=== PATIENT | male | born 1980 | race Caucasian/White ===

== ENCOUNTER 2016-12-04 11:30 | Emergency (ER) | payer OTHER ==
[~2016-12-04] VITALS: Ht 182.9 cm; Wt 99.4 kg
[2016-12-04] MEDS ORDERED: SODIUM CHLORIDE FLUSH 10ML SYR IVF ONE (12:30)
[2016-12-04] MEDS ORDERED: PROCHLORPERAZINE 5 MG/ML, 2ML IVPush ONE (12:30)
[2016-12-04] MEDS ORDERED: DIPHENHYDRAMINE 50 MG/ML, 1ML IVPush ONE (12:30)
[2016-12-04] MEDS ORDERED: SODIUM CHLORIDE 0.9% 1,000ML IVBOLUS ONE (12:30)
[2016-12-04] MEDS ORDERED: PROCHLORPERAZINE 5 MG/ML, 2ML ONE (13:06)
[2016-12-04] MEDS ORDERED: DIPHENHYDRAMINE 50 MG/ML, 1ML ONE (13:07)
[2016-12-04 14:22] VITALS: BP 120/87
== END 2016-12-04 14:26 | disposition home or self-care (01) ==
LOC: ED 12:00
DX: G43.109 Migraine with aura, not intractable, without status migrainosus (principal); R11.10 Vomiting, unspecified
CPT/HCPCS: 96361; 96374; 96375; 99284; J0780; J1200; J7030

== ENCOUNTER 2017-12-05 09:42 | Emergency (ER) | payer OTHER ==
[~2017-12-05] VITALS: Ht 182.9 cm; Wt 93.8 kg
[2017-12-05 09:48] VITALS: BP 129/83
[2017-12-05] MEDS ORDERED: HYDROcodone/APAP 5/325 TABLET ONE (11:13)
[2017-12-05] MEDS ORDERED: HYDROcodone/APAP 5/325 TABLET PO ONE (11:30)
== END 2017-12-05 12:30 | disposition home or self-care (01) ==
LOC: ED 11:45
DX: S92.355A Nondisplaced fracture of fifth metatarsal bone, left foot, initial encounter for closed fracture (principal); W10.9XXA Fall (on) (from) unspecified stairs and steps, initial encounter; Y93.89 Activity, other specified; Y99.8 Other external cause status; Y92.009 Unspecified place in unspecified non-institutional (private) residence as the place of occurrence of the external cause
CPT/HCPCS: 29515; 99284

== ENCOUNTER 2019-02-16 07:48 | Emergency (ER) | payer OTHER ==
[~2019-02-16] VITALS: Ht 182.9 cm; Wt 98.4 kg
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
[2019-02-16] MEDS ORDERED: L.E.T SOLUTION TP ONE ×2 (08:19→08:30)
--- NOTE | 2019-02-16 08:25 | NUR ---
L.E.T. solution applied to laceration
[2019-02-16] MEDS ORDERED: DIPH,PERTUSS(ACELL),TET VAC/PF 0.5 ML IM-VACC ONE ×2 (08:28→08:30)
--- NOTE | 2019-02-16 08:35 | NUR ---
pt to ct
--- NOTE | 2019-02-16 08:57 | NUR ---
BEDSIDE REPORT FROM ANNIE DRAKE. ASSUMED CARE OF PATIENT AT THIS TIME. LET APPLIED AT 0825 PER REPORT, PA AWARE. VS UPDATED IN CHART. PATIENT SITTING IN GURNEY SPEAKING TO FAMILY AT BEDSIDE. ALEM.
[2019-02-16 08:58] VITALS: BP 123/75
--- NOTE | 2019-02-16 09:34 | NUR ---
Patient/Caregiver given discharge instructions and they have confirmed that they understand the instructions. Patient ambulatory with steady gait.
== END 2019-02-16 09:35 | disposition home or self-care (01) ==
LOC: ED 08:51
DX: S01.01XA Laceration without foreign body of scalp, initial encounter (principal); G43.909 Migraine, unspecified, not intractable, without status migrainosus; W19.XXXA Unspecified fall, initial encounter; Y93.89 Activity, other specified; Y92.009 Unspecified place in unspecified non-institutional (private) residence as the place of occurrence of the external cause; Y99.8 Other external cause status
CPT/HCPCS: 12002; 70450; 90471; 90715

== ENCOUNTER 2019-10-12 15:47 | Emergency (ER) | payer OTHER ==
[~2019-10-12] VITALS: Ht 182.9 cm; Wt 106.0 kg
[2019-10-12 15:53] VITALS: BP 143/91
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
[2019-10-12] MEDS ORDERED: LIDOCAINE-MPF 1%, 5ML INFIL ONE (16:30)
[2019-10-12] MEDS ORDERED: NEOSPORIN OINT. PKT 1 PACKET ONE (17:02)
--- NOTE | 2019-10-12 17:10 | NUR ---
Patient/Caregiver given discharge instructions and they have confirmed that they understand the instructions. Patient ambulatory with steady gait.
== END 2019-10-12 17:14 | disposition home or self-care (01) ==
LOC: ED 16:14
DX: S01.312A Laceration without foreign body of left ear, initial encounter (principal); F17.200 Nicotine dependence, unspecified, uncomplicated; W18.30XA Fall on same level, unspecified, initial encounter; Y93.89 Activity, other specified; Y92.009 Unspecified place in unspecified non-institutional (private) residence as the place of occurrence of the external cause; Y99.8 Other external cause status
CPT/HCPCS: 12051; 99284

== ENCOUNTER 2021-04-14 08:29 | Emergency (ER) | payer OTHER ==
[~2021-04-14] VITALS: Ht 182.9 cm; Wt 100.9 kg
[2021-04-14 08:47] VITALS: BP 122/73
== END 2021-04-14 10:53 | disposition home or self-care (01) ==
LOC: ED 09:48
DX: S50.01XA Contusion of right elbow, initial encounter (principal); G43.909 Migraine, unspecified, not intractable, without status migrainosus; F17.210 Nicotine dependence, cigarettes, uncomplicated; W01.0XXA Fall on same level from slipping, tripping and stumbling without subsequent striking against object, initial encounter; Y93.89 Activity, other specified; Y92.009 Unspecified place in unspecified non-institutional (private) residence as the place of occurrence of the external cause; Y99.8 Other external cause status
CPT/HCPCS: 99283